=== PATIENT | male | born 1975 | race Caucasian/White ===

== ENCOUNTER 2019-04-09 11:43 | Emergency (ER) | payer OTHER ==
--- NOTE | 2019-04-09 12:26 | ED.PDOC ---
History of Present Illness - General Chief Complaint: General Stated Complaint: L arm swelling, bruising Time Seen by Provider: 04/09/19 12:05 - History of Present Illness Initial Comments: 44yo M presents with L arm bruising. The patient noted swelling around his elbow onset 1-2 days ago. He states the swelling then started to decompress and he then noted diffuse bruising to his arm (medially). There is mild swelling. He reports no pain. No numbness or weakness. No decreased ROM. 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 He additionally bumped the area today, which may have exacerbated the situation. No fever, redness or warmth. Pt takes ASA daily, but otherwise no blood thinners. No hx of bleeding or clots. No other reported issues. Allergies/Adverse Reactions: Allergies Penicillins Allergy (Verified 09/05/13 17:56) Home Medications: Ambulatory Orders Enalapril Maleate [Vasotec] 20 mg PO HS 09/01/13 Levalbuterol Inhaler [Xopenex Hfa 45 Mcg] 1 puff PO DAILY PRN 09/01/13 Triamcinolone Acetonide (Nasal [Nasacort Allergy 24Hr] 55 mg JOSUÉ DAILY 09/01/13 Cetirizine HCl [Zyrtec Allergy] 10 mg PO DAILY 09/03/13 Review of Systems - Review of Systems Constitutional: Denies: chills, fever Respiratory: Denies: cough, short of breath, wheezing Cardiology: Denies: chest pain, palpitations Musculoskeletal: States: other - L arm swelling and bruising. . Denies: back pain, joint pain, joint swelling, muscle pain Neurological: Denies: numbness, weakness Hematologic/Lymphatic: Denies: blood clots, easy bleeding, easy bruising Past Medical History (General) - Patient Medical History Hx Stroke: No Hx Congestive Heart Failure: No Hx Diabetes: No Hx MRSA: Yes - Aspirate 2009 - Vaccination History Hx Influenza Vaccination: No Hx Pneumococcal Vaccination: No - Social History Hx Tobacco Use: No Hx Alcohol Use: No Hx Substance Use: No Family Medical History - Family History Father Family History: No Known Living Status: Physical Exam - Physical Exam General Appearance: Alert, No apparent distress Neck: non-tender, full range of motion Respiratory: lungs clear, no respiratory distress Cardiovascular/Chest: normal peripheral pulses, regular rate, rhythm Peripheral Pulses: radial,left: 2+ Extremity: normal range of motion, non-tender, other - Pt has mild hematoma to the L elbow region with layer bruising to the distal upper arm and proximal forearm. Minimal edema. Compartments soft. No erythema or warmth. Neurologic: no motor/sensory deficits, alert, oriented x 3, other - Full ROM of the left hand without pain, no numbness or weakness. Skin Exam: warm/dry Lymphatic: no adenopathy Progress - Progress Progress: 04/09/19 14:26 No acute findings in blood work. The patient appears to have a layering hematoma on exam. There is no significant compartment swelling. He is neuro intact. He reports no pain. Cause of initial hematoma likely occult injury. The patient bumped the area again today which likely aggravated the situation. US is not available in the ED today. This was discussed extensively with the patient. We discussed the risks and benefits of transfer vs deferring the study to outpatient follow up. At this time, the patient and would like to hold off on transfer and will plan for outpatient follow up. They are aware of the risks of delayed DVT diagnosis, though this diagnosis is low probability. We discussed return warning extensively. We discussed home management of his hematoma. All questions answered. 04/09/19 14:31 [id number] - Results/Orders Results/Orders: 04/09/19 12:22 Venous,Upper Extremity LT [US] Stat Laboratory Results - last 24 hr 04/09/19 04/09/19 04/09/19 12:37 12:37 12:37 WBC 5.6 RBC 4.71 Hgb 14.8 Hct 42.2 MCV 89.7 MCH 31.4 H MCHC 35.0 RDW 12.4 Plt Count 193 MPV 8.5 Absolute Neuts (auto) 2.90 Absolute Lymphs (auto) 1.60 Absolute Monos (auto) 0.40 Absolute Eos (auto) 0.60 H Absolute Basos (auto) 0.00 Neutrophils % 52.1 Lymphocytes % 29.0 Monocytes % 8.0 Eosinophils % 10.1 H Basophils % 0.8 PT 10.5 INR 1.05 Sodium 137 Potassium 3.7 Chloride 102 Carbon Dioxide 27 Anion Gap 11.7 L BUN 15 Creatinine 0.67 BUN/Creatinine Ratio 22.4 H Random Glucose 92 Serum Osmolality 274.3 L Calcium 9.3 Departure - Departure Clinical Impression: Hematoma of arm Qualifiers: Encounter type: initial encounter Laterality: left Qualified Code(s): S40.022A - Contusion of left upper arm, initial encounter Time of Disposition: 14:12 Disposition: Discharge to Home or Self Care Condition: Good Departure Forms: ED Discharge - Pt. Copy, Patient Portal Self Enrollment Instructions: Contusion (DC) Referrals: Benjamin Pastor MD [Primary Care Provider] - 1-2 Weeks Home Medications: Ambulatory Orders Enalapril Maleate [Vasotec] 20 mg PO HS 09/01/13 Levalbuterol Inhaler [Xopenex Hfa 45 Mcg] 1 puff PO DAILY PRN 09/01/13 Triamcinolone Acetonide (Nasal [Nasacort Allergy 24Hr] 55 mg JOSUÉ DAILY 09/01/13 Cetirizine HCl [Zyrtec Allergy] 10 mg PO DAILY 09/03/13
[2019-04-09 14:53] VITALS: BP 132/70; TEMP 98.1; O2SAT 97
== END 2019-04-09 14:15 | disposition home or self-care (01) ==
LOC: ER 11:43
DX: S50.02XA Contusion of left elbow, initial encounter (principal); S50.12XA Contusion of left forearm, initial encounter; Z88.1 Allergy status to other antibiotic agents; Z79.82 Long term (current) use of aspirin; W22.8XXA Striking against or struck by other objects, initial encounter; Y92.9 Unspecified place or not applicable